=== PATIENT | male | born 1965 | race Caucasian/White ===

== ENCOUNTER 2018-05-15 17:38 | Emergency (ER) | payer MEDICARE, MEDICAID ==
[2018-05-15] MEDS ORDERED: Ketorolac Tromethamine 30 MG/ML VIAL ONE (18:12)
--- NOTE | 2018-05-15 19:58 | RAD ---
TWO VIEWS OF THE RIGHT TIBIA AND FIBULA 05/15/18 COMPARISON: None. HISTORY: Dropped a lawnmower on the foot with right leg pain. FINDINGS: Two views of the right tibia/fibula shows no evidence of acute fracture or dislocation. No radiopaque foreign body is seen. IMPRESSION: No evidence of acute osseous abnormality. POS: [facility]
--- NOTE | 2018-05-15 19:59 | RAD ---
THREE VIEWS OF THE RIGHT FOOT 05/15/18 HISTORY: Dropped a lawnmower on foot with right foot pain. FINDINGS: Three views of the right foot shows no evidence of acute fracture or dislocation. No degenerative eulalio nges are seen. No focal soft tissue swelling is seen. IMPRESSION: No evidence of acute osseous abnormality. POS: [facility]
--- NOTE | 2018-05-15 20:05 | RAD ---
SINGLE VIEW OF THE PELVIS: 05/15/18 COMPARISON: None. HISTORY: Dropped lawnmower on foot with pelvic pain and foot trauma. FINDINGS: Single view of the pelvis shows no evidence of acute fracture or dislocation. No degenerative changes are seen. IMPRESSION: No evidence of acute osseous abnormality. POS: [facility]
== END 2018-05-15 20:42 | disposition home or self-care (01) ==
LOC: ERS 17:38
DX: S97.81XA Crushing injury of right foot, initial encounter (principal); F31.9 Bipolar disorder, unspecified; F20.9 Schizophrenia, unspecified; F90.9 Attention-deficit hyperactivity disorder, unspecified type; F17.220 Nicotine dependence, chewing tobacco, uncomplicated; W20.8XXA Other cause of strike by thrown, projected or falling object, initial encounter
CPT/HCPCS: 72170; 96374; J1885